=== PATIENT | male | born 1960 | race Caucasian/White ===

== ENCOUNTER 2020-08-09 00:58 | Observation (INO) ==
[2020-08-09] MEDS ORDERED: Isovue-370 500 ML BOTTLE IVP ONE (01:25)
[2020-08-09 01:39] LABS: Basophils # 0.1 K/mcL (0.0-0.2); Basophils % 0.9 %; Eosinophils # 0.2 K/mcL (0.0-0.6); Eosinophils % 2.6 %; Hematocrit 50.5 % (37.5-50.1); Hemoglobin 16.1 g/dL (12.9-16.9); Immature Granulocytes % 1.2 % (0-4); Lymphocytes # 1.9 K/mcL (0.6-4.6); Lymphocytes % 28.1 %; Mean Corpuscular HGB Conc 31.9 g/dL (31.6-35.5); Mean Corpuscular Hemoglobin 26.1 pg (28.0-33.3); Mean Corpuscular Volume 81.7 fL (83.0-100.0); Mean Platelet Volume 10.8 fL (9.4-12.4); Monocytes # 0.7 K/mcL (0.0-1.3); Monocytes % 9.8 %; Neutrophils # 3.8 K/mcL (1.6-8.9); Platelet Count 223 K/mcL (140-400); Red Blood Count 6.18 M/mcL (4.19-5.50); Red Cell Distribution Width 13.2 % (11.5-14.5); Segmented Neutrophils % 57.4 %; White Blood Count 6.6 K/mcL (4.3-11.1)
[2020-08-09 01:42] LABS: Activated Partial Thrombo Time 32.6 Seconds (26.0-36.0)
[2020-08-09 01:47] LABS: Alanine Aminotransferase 12 Units/L (7-52); Albumin 3.8 g/dL (3.5-5.7); Albumin/Globulin Ratio 1.6 (1.1-2.2); Alkaline Phosphatase 94 Units/L (34-104); Aspartate Amino Transferase 9 Units/L (13-39); BUN/Creatinine Ratio 19 (6-26); Bilirubin,Indirect 0.2 mg/dL (0.0-1.0); Bilirubin,Total 0.2 mg/dL (0.3-1.0); Blood Urea Nitrogen 13 mg/dL (6-20); Calcium 9.4 mg/dL (8.6-10.3); Carbon Dioxide 26 mEq/L (23-29); Chloride 98 mEq/L (98-107); Ethanol < 10 mg/dL (Less than 10); Globulin 2.4 g/dL (2.4-3.5); Glucose 319 mg/dL (70-105); Osmolality,Calculated 286 (280-300); Potassium 3.9 mEq/L (3.5-5.1); Sodium 132 mEq/L (136-145); Total Protein 6.2 g/dL (6.4-8.9); Troponin I < 0.03 ng/mL (< 0.04); eGFR For African Americans > 60 (> 60); eGFR For Non-African Americans > 60 (> 60)
[2020-08-09 02:03] LABS: Acetaminophen < 10 mcg/mL (10-20); Chol/HDL Ratio 6.6 (0-4.9); Cholesterol 230 mg/dL (< 200); Estimated Average Glucose 278 mg/dl; HDL Cholesterol 35 mg/dL (40-59); Hemoglobin A1C 11.3 %; LDL Cholesterol,Calculated 132 mg/dL (< 100); Salicylate < 2.5 mg/dL (15.0-30.0); Triglycerides 313 mg/dL (< 150)
[2020-08-09] MEDS ORDERED: cefTRIAXone 1,000 MG in Water for inj. (sterile) 10 ML IVP ONE (02:30)
[2020-08-09] MEDS ORDERED: Azithromycin 500 MG in 0.9 % Sodium Chloride 250 ML IVPB ONE (02:30)
[2020-08-09 02:32] LABS: Bacteria,Urine Few per hpf (None-Few); Bilirubin,Urine Negative (Negative); Blood,Urine Negative (Negative); Clarity,Urine Clear (Clear); Color,Urine Colorless (Yellow); Glucose,Urine (UA) 100 mg/dL (Normal); Ketones,Urine Negative (Negative); Leukocyte Esterase,Urine Negative (Negative); Nitrite,Urine Negative (Negative); Protein,Urine Negative (Neg-Trace); Specific Gravity,Urine 1.016 (1.010-1.025); Urobilinogen,Urine Normal (Normal); WBC,Urine 0-3 per hpf (0-3)
[2020-08-09 02:42] LABS: Amphetamine Screen,Urine Negative ng/mL (Cutoff=1000); Barbiturate Screen,Urine Negative ng/mL (Cutoff=200); Benzodiazepines Screen,Urine Negative ng/mL (Cutoff=200); Cannabinoid Screen,Urine Negative ng/mL (Cutoff = 50); Cocaine Screen,Urine Negative ng/mL (Cutoff= 300); Opiate Screen,Urine Negative ng/mL (Cutoff=300); Phencyclidine Screen,Urine Negative ng/mL (Cutoff=25)
[2020-08-09] MEDS ORDERED: 0.9 % Sodium Chloride 1,000 ML IVC ONE (02:56)
[2020-08-09] MEDS ORDERED: Ondansetron ODT 4 MG TAB.RAPDIS SL PRN (03:26)
[2020-08-09] MEDS ORDERED: Acetaminophen 325 MG TABLET PO PRN (03:26)
[2020-08-09] MEDS ORDERED: Naloxone 0.4 MG/ML INJ IVP PRN (03:26)
[2020-08-09] MEDS ORDERED: *HR* Dextrose 50 % in Water (Vial) 50 ML VIAL IVP PRN (03:30)
[2020-08-09] MEDS ORDERED: D5% in Water 1,000 ML IVC PRN (03:30)
[2020-08-09] MEDS ORDERED: Dextrose Gel 15 GM/37.5 ML TUBE PO PRN ×2 (03:30)
[2020-08-09 03:44] LABS: VBG HCO3 27 mEq/L (21-27); VBG PCO2 50 mmHg (41-51); VBG PH 7.34 pH Units (7.32-7.42); VBG PO2 89 mmHg (25-50)
[2020-08-09 03:56] LABS: Magnesium 1.7 mg/dL (1.6-2.6)
[2020-08-09] MEDS ORDERED: Perflutren Lipid Microsphere 1.3 ML in 0.9 % Sodium Chloride 8.7 ML IVP PRN (04:11)
[2020-08-09 04:44] LABS: Thyroid Stimulating Hormone 3.658 mcIU/mL (0.340-5.600)
[2020-08-09] MEDS: Insulin LISPRO 300 UNITS/3 ML VIAL SUBQ SCH ×6 (05:07→20:31)
[2020-08-09] MEDS: MethylPREDNISolone 40 MG/ML VIAL IVP SCH ×2 (05:28→16:57)
[2020-08-09] MEDS: *HR* Enoxaparin 40 MG/0.4 ML SYRINGE SQ SCH (09:04)
[2020-08-09] MEDS: Aspirin Enteric Coated 81 MG Tablet PO SCH (09:04)
[2020-08-09] MEDS: Azithromycin 500 MG in 0.9 % Sodium Chloride 250 ML IVPB SCH (16:56)
[2020-08-09] MEDS: cefTRIAXone 1,000 MG in Water for inj. (sterile) 10 ML IVP SCH (16:57)
[2020-08-09] MEDS: Insulin DETEMIR 100 UNIT/ML X5UNITS SUBQ SCH (20:31)
[2020-08-10 02:06] LABS: Basophils # 0.1 K/mcL (0.0-0.2); Basophils % 0.4 %; Immature Granulocytes % 0.9 % (0-4); Lymphocytes # 1.8 K/mcL (0.6-4.6); Lymphocytes % 12.6 %; Mean Corpuscular HGB Conc 31.5 g/dL (31.6-35.5); Mean Corpuscular Hemoglobin 25.8 pg (28.0-33.3); Mean Corpuscular Volume 81.9 fL (83.0-100.0); Mean Platelet Volume 10.8 fL (9.4-12.4); Monocytes # 0.4 K/mcL (0.0-1.3); Monocytes % 2.5 %; Neutrophils # 11.8 K/mcL (1.6-8.9); Platelet Count 319 K/mcL (140-400); Red Blood Count 7.09 M/mcL (4.19-5.50); Red Cell Distribution Width 14.7 % (11.5-14.5); Segmented Neutrophils % 83.6 %
[2020-08-10 02:10] LABS: Hematocrit 58.1 % (37.5-50.1); Hemoglobin 18.3 g/dL (12.9-16.9); White Blood Count 14.1 K/mcL (4.3-11.1)
[2020-08-10 02:18] LABS: BUN/Creatinine Ratio 22 (6-26); Blood Urea Nitrogen 18 mg/dL (6-20); Calcium 10.1 mg/dL (8.6-10.3); Carbon Dioxide 26 mEq/L (23-29); Chloride 97 mEq/L (98-107); Glucose 240 mg/dL (70-105); Osmolality,Calculated 288 (280-300); Potassium 4.8 mEq/L (3.5-5.1); Sodium 134 mEq/L (136-145); eGFR For African Americans > 60 (> 60); eGFR For Non-African Americans > 60 (> 60)
[2020-08-10] MEDS: MethylPREDNISolone 40 MG/ML VIAL IVP SCH (05:14)
[2020-08-10] MEDS ORDERED: haloperidoL 5 MG TABLET PO PRN (07:35)
[2020-08-10] MEDS ORDERED: hydrOXYzine pamoate 25 MG CAPSULE PO PRN (07:35)
[2020-08-10] MEDS: Isosorbide MONOnitrate (24 HR) 30 MG TAB.ER.24H PO SCH (08:44)
[2020-08-10] MEDS: Aspirin Enteric Coated 81 MG Tablet PO SCH (08:44)
[2020-08-10] MEDS: carBAMazepine 200 MG TABLET PO SCH ×2 (08:44→21:57)
[2020-08-10] MEDS: Metoprolol XL (24 HR) Succ 25 MG TAB.ER.24H PO SCH (08:44)
[2020-08-10] MEDS: allopurinoL 100 MG TABLET PO SCH (08:44)
[2020-08-10] MEDS: Gabapentin 300 MG CAPSULE PO SCH ×3 (08:44→21:57)
[2020-08-10] MEDS: *HR* Enoxaparin 40 MG/0.4 ML SYRINGE SQ SCH (08:44)
[2020-08-10] MEDS: Cholecalciferol (D-3) 1,000 UNIT (25MCG) TABLET PO SCH (08:44)
[2020-08-10] MEDS: Insulin LISPRO 300 UNITS/3 ML VIAL SUBQ SCH ×4 (08:45→21:55)
[2020-08-10] MEDS: Budesonide/Formoterol 160/4.5 1 PUFF INH IH SCH ×2 (10:24→20:05)
[2020-08-10] MEDS: Artificial Tears SOLN 15 ML BOTTLE OP SCH ×3 (10:43→21:54)
[2020-08-10 14:40] LABS: Hemoglobin 17.5 g/dL (12.9-16.9); Mean Corpuscular HGB Conc 31.7 g/dL (31.6-35.5); Mean Platelet Volume 10.6 fL (9.4-12.4); Platelet Count 304 K/mcL (140-400); Red Blood Count 6.73 M/mcL (4.19-5.50); Red Cell Distribution Width 14.6 % (11.5-14.5); White Blood Count 12.2 K/mcL (4.3-11.1)
[2020-08-10 14:45] LABS: Hematocrit 55.2 % (37.5-50.1)
[2020-08-10] MEDS: Azithromycin 500 MG in 0.9 % Sodium Chloride 250 ML IVPB SCH (17:01)
[2020-08-10] MEDS: cefTRIAXone 1,000 MG in Water for inj. (sterile) 10 ML IVP SCH (17:01)
[2020-08-10] MEDS ORDERED: 0.9 % Sodium Chloride 1,000 ML IVC SCH (17:30)
[2020-08-10] MEDS ORDERED: QUEtiapine Fumarate 100 MG TABLET PO SCH (21:00)
[2020-08-10] MEDS: Insulin DETEMIR 100 UNIT/ML X5UNITS SUBQ SCH (21:56)
[2020-08-11] MEDS ORDERED: *HR* Enoxaparin 40 MG/0.4 ML SYRINGE SQ SCH (06:00)
[2020-08-11 06:31] LABS: Hematocrit 53.2 % (37.5-50.1); Hemoglobin 17.3 g/dL (12.9-16.9); Mean Corpuscular HGB Conc 32.5 g/dL (31.6-35.5); Mean Corpuscular Hemoglobin 26.9 pg (28.0-33.3); Mean Corpuscular Volume 82.9 fL (83.0-100.0); Mean Platelet Volume 10.4 fL (9.4-12.4); Platelet Count 219 K/mcL (140-400); Red Blood Count 6.42 M/mcL (4.19-5.50); Red Cell Distribution Width 14.7 % (11.5-14.5)
[2020-08-11 06:54] LABS: BUN/Creatinine Ratio 23 (6-26); Blood Urea Nitrogen 21 mg/dL (6-20); Calcium 8.9 mg/dL (8.6-10.3); Carbon Dioxide 28 mEq/L (23-29); Chloride 101 mEq/L (98-107); Glucose 143 mg/dL (70-105); Osmolality,Calculated 291 (280-300); Potassium 4.2 mEq/L (3.5-5.1); Sodium 138 mEq/L (136-145); eGFR For African Americans > 60 (> 60); eGFR For Non-African Americans > 60 (> 60)
[2020-08-11] MEDS: Budesonide/Formoterol 160/4.5 1 PUFF INH IH SCH (07:24)
[2020-08-11 07:46] VITALS: BP 115/75
[2020-08-11] MEDS: Insulin LISPRO 300 UNITS/3 ML VIAL SUBQ SCH ×2 (08:20→13:05)
[2020-08-11] MEDS: Gabapentin 300 MG CAPSULE PO SCH (08:42)
[2020-08-11] MEDS: Cholecalciferol (D-3) 1,000 UNIT (25MCG) TABLET PO SCH (08:42)
[2020-08-11] MEDS: carBAMazepine 200 MG TABLET PO SCH (08:42)
[2020-08-11] MEDS: allopurinoL 100 MG TABLET PO SCH (08:42)
[2020-08-11] MEDS: Aspirin Enteric Coated 81 MG Tablet PO SCH (08:42)
[2020-08-11] MEDS: Isosorbide MONOnitrate (24 HR) 30 MG TAB.ER.24H PO SCH (08:42)
[2020-08-11] MEDS: Metoprolol XL (24 HR) Succ 25 MG TAB.ER.24H PO SCH (08:42)
[2020-08-11] MEDS: Artificial Tears SOLN 15 ML BOTTLE OP SCH (08:43)
[2020-08-11] MEDS ORDERED: predniSONE 20 MG TABLET PO SCH (09:00)
[2020-08-11 10:14] LABS: Influenza A PCR Negative (Negative); Influenza B PCR Negative (Negative); Resp. Syncytial Virus PCR Negative (Negative); SARS-CoV-2 by PCR (In House) Negative (Negative)
== END 2020-08-11 14:55 ==
LOC: EMEROOARM 00:58 → 2ANU 00:58 → SUATTDRO 03:33 → 2ANU 04:37
PROVIDERS: ADMIT Internal Medicine; ATTEND Internal Medicine